=== PATIENT | female | born 1950 | race Caucasian/White ===

== ENCOUNTER 2023-04-13 10:25 | Outpatient (CLI) | payer MEDICARE | END 2023-04-13 10:26 | disposition home or self-care (01) | LOC: CSHMAMMO 10:25 | PROVIDERS: ATTEND Internal Medicine | DX: Z12.31 Encounter for screening mammogram for malignant neoplasm of breast (principal); Z13.820 Encounter for screening for osteoporosis; M85.89 Other specified disorders of bone density and structure, multiple sites; Z78.0 Asymptomatic menopausal state | CPT/HCPCS: 77063; 77067; 77080 ==

== ENCOUNTER 2024-04-17 10:58 | Outpatient (CLI) | payer MEDICARE | END 2024-04-17 10:59 | disposition home or self-care (01) | LOC: CSHMAMMO 10:58 | PROVIDERS: ATTEND Nurse Practitioner Family | DX: Z12.31 Encounter for screening mammogram for malignant neoplasm of breast (principal) | CPT/HCPCS: 77063; 77067 ==

== ENCOUNTER 2025-04-18 10:14 | Outpatient (CLI) | payer MEDICARE | END 2025-04-18 10:15 | disposition home or self-care (01) | LOC: CSHMAMMO 10:14 | PROVIDERS: ATTEND Nurse Practitioner Family | DX: Z12.31 Encounter for screening mammogram for malignant neoplasm of breast (principal) | CPT/HCPCS: 77063; 77067 ==